=== PATIENT | female | born 1935 | race Caucasian/White ===

== ENCOUNTER → 2020-07-08 | Outpatient (CLI) | payer MEDICARE, BC ==
[~2020-07-08] MED LIST: ANTIVERT 25MG T25 MG PO; ASPIRIN EC81 MG PO; DONEPEZIL HCL5 MG PO; GLUCOPHAGE 500500 MG PO; HYDROCHLOROTHIA25 MG PO; LIPITOR40 MG PO; LISINOPRIL10 MG PO; NORVASC 5 MG TAB5 MG PO; OMEPRAZOLE40 MG PO; PAROXETINE HCL40 MG PO; VITAMIN D350000 UNIT PO
== END ==
LOC: KOH-I 16:03
DX: R06.02 Shortness of breath (principal); R91.8 Other nonspecific abnormal finding of lung field
CPT/HCPCS: 71046

== ENCOUNTER → 2020-07-09 | Outpatient (CLI) | payer MEDICARE, BC | LOC: CT 12:37 | DX: I71.4 Abdominal aortic aneurysm, without rupture (principal); R06.02 Shortness of breath; R91.8 Other nonspecific abnormal finding of lung field; R93.89 Abnormal findings on diagnostic imaging of other specified body structures | CPT/HCPCS: 36415; 71260; 82565; Q9963 ==

== ENCOUNTER 2021-03-02 17:50 | Inpatient (IN) | payer MEDICARE, BC ==
[~2021-03-02] VITALS: Ht 160 cm; Wt 75.9 kg
[2021-03-02 18:30] LABS: HEMOGLOBIN 11.8 gm/dl (12.3-15.3); RED BLOOD COUNT 3.86 M/UL (4.00-5.10); WHITE BLOOD COUNT 10.2 K/UL (4.5-11.0)
[2021-03-03 04:47] LABS: HEMOGLOBIN 12.6 gm/dl (12.3-15.3); RED BLOOD COUNT 4.14 M/UL (4.00-5.10)
[2021-03-03 04:49] LABS: WHITE BLOOD COUNT 6.3 K/UL (4.5-11.0)
[2021-03-03] MEDS ORDERED: LEVOTHYROXINE50 MCG PO (09:15)
[2021-03-03] MEDS ORDERED: CARVEDILOL6.25 MG PO (09:16)
[2021-03-03 11:19] LABS: HEMOGLOBIN 11.9 gm/dl (12.3-15.3); RED BLOOD COUNT 3.9 M/UL (4.00-5.10)
== END 2021-03-03 16:32 | disposition expired | DRG 208 ==
LOC: ER1 17:50 → CCU 20:27 → CDU 20:27 → CCU 22:48
PROVIDERS: Emergency Medicine; Internal Medicine; ADMIT Internal Medicine
PROC: 3E033XZ Introduction of Vasopressor into Peripheral Vein, Percutaneous Approach (ICD-10-PCS; 2021-02-27)
PROC: 04HY32Z Insertion of Monitoring Device into Lower Artery, Percutaneous Approach (ICD-10-PCS; principal; 2021-03-02)
PROC: B44LZZZ Ultrasonography of Femoral Artery (ICD-10-PCS; 2021-03-02)
PROC: 5A1945Z Respiratory Ventilation, 24-96 Consecutive Hours (ICD-10-PCS; 2021-03-02)
PROC: B24BZZZ Ultrasonography of Heart with Aorta (ICD-10-PCS; 2021-03-03)
DX: J96.01 Acute respiratory failure with hypoxia (principal); E11.11 Type 2 diabetes mellitus with ketoacidosis with coma; Z20.822 Contact with and (suspected) exposure to COVID-19; Z66 Do not resuscitate; Z51.5 Encounter for palliative care; G93.1 Anoxic brain damage, not elsewhere classified; E87.4 Mixed disorder of acid-base balance; G93.40 Encephalopathy, unspecified; B17.9 Acute viral hepatitis, unspecified; I46.8 Cardiac arrest due to other underlying condition; R57.0 Cardiogenic shock; E11.9 Type 2 diabetes mellitus without complications; I08.3 Combined rheumatic disorders of mitral, aortic and tricuspid valves; E78.5 Hyperlipidemia, unspecified; I10 Essential (primary) hypertension; F41.9 Anxiety disorder, unspecified; I45.10 Unspecified right bundle-branch block; F03.90 Unspecified dementia, unspecified severity, without behavioral disturbance, psychotic disturbance, mood disturbance, and anxiety; F32.A Depression, unspecified; E11.65 Type 2 diabetes mellitus with hyperglycemia; Z90.49 Acquired absence of other specified parts of digestive tract; Z90.710 Acquired absence of both cervix and uterus; Z80.1 Family history of malignant neoplasm of trachea, bronchus and lung; Z79.4 Long term (current) use of insulin; Z79.82 Long term (current) use of aspirin
CPT/HCPCS: ECHO; 36415; 36556; 36600; 51702; 70450; 71045; 80048; 80053; 80307; 82140; 82550; 82553; 82607; 82746; 82803; 82962; 83036; 83605; 83615; 83735; 83874; 83880; 84100; 84439; 84443; 84484; 84550; 85025; 85384; 85610; 85730; 86140; 87040; 92950; 93005; 93306; 94002; 96374; 96375; 99285; C9113; J0171; J0692; J2370; J2543; J3480; J7030; J7040; J7070; U0002